=== PATIENT | female | born 1960 | race Caucasian/White ===

== ENCOUNTER → 2021-05-02 | Outpatient (CLI) | payer MEDICAID | END | disposition home or self-care (01) | LOC: ROC 04-18 10:32 | PROVIDERS: ATTEND Radiology Radiation Oncology | DX: C53.9 Malignant neoplasm of cervix uteri, unspecified (principal) | CPT/HCPCS: 99214; G0463 ==

== ENCOUNTER 2021-05-15 08:36 | Observation (INO) | payer MEDICAID ==
[~2021-05-15] VITALS: Ht 162.6 cm; Wt 83.5 kg
[2021-05-16 08:02] VITALS: BP 133/72
== END 2021-05-16 14:54 | disposition home or self-care (01) ==
LOC: 4NW 08:36 → EDSTATUS 09:00 → INTOOBSV 09:00 → OBSVTOIN 09:00 → UNDODISIN 05-16 14:54
PROVIDERS: ADMIT Specialist; ATTEND Specialist
DX: C53.9 Malignant neoplasm of cervix uteri, unspecified (principal); R11.0 Nausea; Z79.899 Other long term (current) drug therapy
CPT/HCPCS: 36415; 74018; 80053; 83735; 85025; 96361; 96365; 96366; 96367; 96375; G0378; G0379; J1100; J1200; J1453; J2150; J2405; J7030; J7050; J9060

== ENCOUNTER 2021-05-18 13:41 | Inpatient (IN) | payer MEDICAID ==
[~2021-05-18] VITALS: Ht 162.6 cm; Wt 83.1 kg
[~2021-05-18 13:41] MED LIST: METH10SO PO
[2021-05-18] MEDS ORDERED: SODIUM CHLORIDE 0.9% 1,000ML IVBOLUS ONE ×2 (14:30→18:00)
--- NOTE | 2021-05-18 15:00 | NUR ---
PT AMUBLATED TO BATHROOM. BACK FROM IMAGING
--- NOTE | 2021-05-18 15:20 | NUR ---
DIFFICULT IV ACCES. ATTEMPTING US
[2021-05-18 15:42] LABS: BASOPHILS % (AUTO) 0 % (0-1); EOSINOPHILS % (AUTO) 0 % (1-7); LYMPHOCYTES % (AUTO) 11 % (22-44); MEAN CORPUSCULAR HEMOGLOBIN 29.4 pg (27.0-34.8); MEAN CORPUSCULAR HGB CONC 33.9 g/dL (32.4-35.8); MONOCYTES % (AUTO) 3 % (2-9); NEUTROPHILS % (AUTO) 86 % (42-75); PLATELET COUNT 232 x10^3/uL (130-400); RED BLOOD COUNT 4.96 x10^6/uL (3.82-5.3); RED CELL DISTRIBUTION WIDTH 12.7 % (9.6-15.2)
[2021-05-18 15:51] LABS: MICROSCOPIC AUTO
[2021-05-18 15:53] LABS: ALANINE AMINOTRANSFERASE 43 U/L (12-78); ALBUMIN 3.5 g/dL (3.4-5.0); ANION GAP 5 mmol/L (5-15); CALCIUM 9.3 mg/dL (8.5-10.1); CHLORIDE 101 mmol/L (98-107)
[2021-05-18 15:56] LABS: ALKALINE PHOSPHATASE 80 U/L (45-117); BILIRUBIN,TOTAL 0.5 mg/dL (0.2-1.0); TOTAL PROTEIN 7.8 g/dL (6.4-8.2)
[2021-05-18] MEDS ORDERED: METHYLNALTREXONE 12 MG/0.6 ML SYR SQ STA (16:09)
[2021-05-18] MEDS ORDERED: METHYLNALTREXONE 12 MG/0.6 ML SYR SQ ONE ×2 (16:30→16:56)
--- NOTE | 2021-05-18 17:39 | NUR ---
pt to bathroom for bm, given toilettes.
[2021-05-18] MEDS ORDERED: MORPHINE SULFATE 4 MG/ML, 1ML IVPush PRN (18:00)
[2021-05-18] MEDS ORDERED: ONDANSETRON 2MG/ML, 2ML IVPush ONE (18:00)
[2021-05-18] MEDS ORDERED: MORPHINE SULFATE 4 MG/ML, 1ML ONE (18:00)
[2021-05-18] MEDS ORDERED: ONDANSETRON 2MG/ML, 2ML ONE (18:00)
--- NOTE | 2021-05-18 18:05 | NUR ---
PT HAVING SEVERE ABDOMINAL CRAMPS. MEDICATED FOR PAIN. PT WANTS TO BE ADMITTED
--- NOTE | 2021-05-18 19:47 | NUR ---
[facility] AT BEDSIDE. REPORT GIVEN
[2021-05-18] MEDS ORDERED: LABETALOL 5MG/ML, 20ML IVPush PRN (20:00)
[2021-05-18] MEDS ORDERED: ACETAMINOPHEN 325 MG TABLET PO PRN (20:00)
[2021-05-18] MEDS ORDERED: OXYC-302 PO (20:24)
[2021-05-18] MEDS ORDERED: DOCU-131 PO (20:24)
[2021-05-18 21:16] VITALS: BP 155/80
[2021-05-18] MEDS: ENOXAPARIN 40 MG/0.4 ML SQ SCH (21:24)
[2021-05-18] MEDS: KETOROLAC 30 MG/1 ML IV PRN (21:24)
[2021-05-18] MEDS: CEFTRIAXONE 2 GM in DEXTROSE 5% 50 ML IVPB SCH (21:24)
[2021-05-18] MEDS: LACTULOSE 10 GM/15 ML UDC PO SCH (21:24)
[2021-05-18] MEDS ORDERED: METH40TA3 PO (22:28)
[2021-05-18] MEDS: ONDANSETRON 2MG/ML, 2ML IVPush PRN (22:36)
[2021-05-18] MEDS: LACTATED RINGERS 1,000 ML IV SCH (22:37)
[2021-05-19 01:07] VITALS: BP 146/72
[2021-05-19] MEDS: ONDANSETRON 2MG/ML, 2ML IVPush PRN ×3 (04:43→19:33)
[2021-05-19] MEDS: KETOROLAC 30 MG/1 ML IV PRN ×3 (04:43→21:10)
[2021-05-19] MEDS: METHADONE 40 MG TABLET.SOL PO SCH ×3 (05:47→08:10)
[2021-05-19 06:28] LABS: BASOPHILS % (AUTO) 1 % (0-1); EOSINOPHILS % (AUTO) 1 % (1-7); LYMPHOCYTES % (AUTO) 34 % (22-44); MEAN CORPUSCULAR HEMOGLOBIN 29.4 pg (27.0-34.8); MEAN CORPUSCULAR HGB CONC 34.1 g/dL (32.4-35.8); MEAN PLATELET VOLUME 9.9 fL (7.4-10.4); MONOCYTES % (AUTO) 4 % (2-9); NEUTROPHILS % (AUTO) 61 % (42-75); PLATELET COUNT 210 x10^3/uL (130-400); RED BLOOD COUNT 4.41 x10^6/uL (3.82-5.3); RED CELL DISTRIBUTION WIDTH 12.7 % (9.6-15.2)
[2021-05-19 06:36] LABS: CHLORIDE 106 mmol/L (98-107)
[2021-05-19 06:59] LABS: ANION GAP 8 mmol/L (5-15); CALCIUM 8.6 mg/dL (8.5-10.1); CREATININE 0.66 mg/dL (0.55-1.02)
[2021-05-19] MEDS ORDERED: METHADONE 10 MG TABLET ONE (08:04)
[2021-05-19] MEDS: LACTULOSE 10 GM/15 ML UDC PO SCH (08:06)
[2021-05-19 09:59] VITALS: BP 149/77
[2021-05-19] MEDS: OXYcodone/APAP 5/325MG TABLET PO PRN ×3 (10:35→19:33)
[2021-05-19] MEDS: LACTATED RINGERS 1,000 ML IV SCH (10:38)
[2021-05-19 15:29] VITALS: BP 141/73
[2021-05-19] MEDS ORDERED: LACTULOSE 10 GM/15 ML UDC PO PRN (17:00)
[2021-05-19 20:19] VITALS: BP 152/78
[2021-05-19] MEDS: MELATONIN 5 MG TABLET PO PRN (21:10)
[2021-05-19] MEDS: CEFTRIAXONE 2 GM in DEXTROSE 5% 50 ML IVPB SCH (21:10)
[2021-05-19] MEDS: ENOXAPARIN 40 MG/0.4 ML SQ SCH (21:10)
[2021-05-20 00:45] VITALS: BP 131/79
[2021-05-20] MEDS: LACTATED RINGERS 1,000 ML IV SCH (01:29)
[2021-05-20] MEDS: ONDANSETRON 2MG/ML, 2ML IVPush PRN ×4 (02:33→16:42)
[2021-05-20] MEDS: OXYcodone/APAP 5/325MG TABLET PO PRN ×5 (02:35→20:50)
[2021-05-20] MEDS: KETOROLAC 30 MG/1 ML IV PRN ×2 (03:09→19:13)
[2021-05-20] MEDS ORDERED: METHADONE 10 MG TABLET ONE (08:02)
[2021-05-20] MEDS: METHADONE 40 MG TABLET.SOL PO SCH (08:04)
[2021-05-20 08:07] VITALS: BP 134/80
[2021-05-20 13:18] VITALS: BP 116/62
[2021-05-20 18:40] VITALS: BP 145/77
[2021-05-20] MEDS: MELATONIN 5 MG TABLET PO PRN (20:50)
[2021-05-20] MEDS: CEFTRIAXONE 2 GM in DEXTROSE 5% 50 ML IVPB SCH (20:50)
[2021-05-20] MEDS: ENOXAPARIN 40 MG/0.4 ML SQ SCH (20:54)
[2021-05-21 01:40] VITALS: BP 132/77
[2021-05-21] MEDS: OXYcodone/APAP 5/325MG TABLET PO PRN ×2 (01:40→19:59)
[2021-05-21] MEDS: KETOROLAC 30 MG/1 ML IV PRN (06:42)
[2021-05-21 07:09] VITALS: BP 140/84
[2021-05-21] MEDS ORDERED: METHADONE 10 MG TABLET ONE (08:50)
[2021-05-21] MEDS: METHADONE 40 MG TABLET.SOL PO SCH (09:09)
[2021-05-21] MEDS: SODIUM CHLORIDE 0.9% 1,000ML IV ONE ×2 (11:20→11:45)
[2021-05-21 12:06] LABS: BASOPHILS % (AUTO) 0 % (0-1); EOSINOPHILS % (AUTO) 1 % (1-7); LYMPHOCYTES % (AUTO) 17 % (22-44); MEAN CORPUSCULAR HGB CONC 34.8 g/dL (32.4-35.8); MEAN PLATELET VOLUME 8.8 fL (7.4-10.4); MONOCYTES % (AUTO) 5 % (2-9); NEUTROPHILS % (AUTO) 77 % (42-75); PLATELET COUNT 205 x10^3/uL (130-400); RED BLOOD COUNT 4.68 x10^6/uL (3.82-5.3)
[2021-05-21 12:16] LABS: ALBUMIN 3.2 g/dL (3.4-5.0); ANION GAP 6 mmol/L (5-15); CALCIUM 9.1 mg/dL (8.5-10.1); CHLORIDE 102 mmol/L (98-107)
[2021-05-21 12:21] LABS: ALANINE AMINOTRANSFERASE 38 U/L (12-78); ALKALINE PHOSPHATASE 67 U/L (45-117); BILIRUBIN,TOTAL 0.5 mg/dL (0.2-1.0); CREATININE 0.91 mg/dL (0.55-1.02); TOTAL PROTEIN 6.7 g/dL (6.4-8.2)
[2021-05-21] MEDS ORDERED: SODIUM CHLORIDE 0.9% 1,000ML IV ONE (13:00)
[2021-05-21] MEDS ORDERED: POTASSIUM CHLORIDE 20 MEQ TAB.ER.PRT PO ONE ×2 (13:00)
[2021-05-21] MEDS ORDERED: FAMOTIDINE 20 MG/2 ML IVPush ONE (14:00)
[2021-05-21] MEDS ORDERED: ONDANSETRON 16 MG, DEXAMETHASONE 12 MG in SODIUM CHLORIDE 0.9% 50 ML IVPB ONE (14:00)
[2021-05-21] MEDS ORDERED: FOSAPREPITANT 150 MG in SODIUM CHLORIDE 0.9% 145 ML IV ONE (14:00)
[2021-05-21] MEDS ORDERED: DIPHENHYDRAMINE 50 MG/ML, 1ML IVPush ONE (14:00)
[2021-05-21 14:16] VITALS: BP 151/81
[2021-05-21] MEDS ORDERED: CISPLATIN IV ONE (14:30)
[2021-05-21] MEDS ORDERED: SODIUM CHLORIDE 0.9% IV ONE (14:30)
[2021-05-21] MEDS ORDERED: LIDOCAINE JELLY 2%, 30GM TP PRN (15:30)
[2021-05-21] MEDS ORDERED: MANNITOL 25% 12.5 GM in SODIUM CHLORIDE 0.9% 1,000 ML IV SCH ×2 (16:00→21:00)
[2021-05-21 19:21] VITALS: BP 151/86
[2021-05-21] MEDS: ENOXAPARIN 40 MG/0.4 ML SQ SCH (19:59)
[2021-05-21] MEDS: ONDANSETRON 2MG/ML, 2ML IVPush PRN (19:59)
[2021-05-21] MEDS ORDERED: FILTER 0.22 MICRON IV ONE (21:00)
[2021-05-21] MEDS: MELATONIN 5 MG TABLET PO PRN (21:43)
[2021-05-21] MEDS: CEFTRIAXONE 2 GM in DEXTROSE 5% 50 ML IVPB SCH (22:19)
[2021-05-22 01:07] VITALS: BP 119/70
[2021-05-22] MEDS: OXYcodone/APAP 5/325MG TABLET PO PRN ×2 (01:18→08:48)
[2021-05-22 06:54] VITALS: BP 141/76
[2021-05-22] MEDS ORDERED: METHADONE 10 MG TABLET ONE (08:28)
[2021-05-22] MEDS: METHADONE 40 MG TABLET.SOL PO SCH (08:33)
[2021-05-22] MEDS: ONDANSETRON 2MG/ML, 2ML IVPush PRN (10:52)
[2021-05-22 13:08] VITALS: BP 149/66
== END 2021-05-22 18:00 | disposition home or self-care (01) | DRG 247 ==
LOC: ED 14:11 → EDIP 17:59 → INTOOBSV 17:59 → OBSVTOIN 17:59 → 4NW 20:17 → UNDODISOB 05-22 18:00
PROVIDERS: ADMIT Internal Medicine; ATTEND Family Medicine
DX: K56.41 Fecal impaction (principal); N30.90 Cystitis, unspecified without hematuria; C53.9 Malignant neoplasm of cervix uteri, unspecified; F11.10 Opioid abuse, uncomplicated; F17.210 Nicotine dependence, cigarettes, uncomplicated; G89.3 Neoplasm related pain (acute) (chronic); Z88.2 Allergy status to sulfonamides
CPT/HCPCS: 36415; 74021; 77336; 77386; 80048; 80053; 81001; 83735; 84443; 85025; 87086; 96361; 96365; 96366; 96367; 96372; 96375; 96376; 99284; G0378; J0696; J1100; J1200; J1453; J1650; J1885; J2150; J2270; J2405; J7030; J7050; J7120; J9060

== ENCOUNTER 2021-05-29 09:00 | Observation (INO) | payer MEDICAID ==
[~2021-05-29] VITALS: Ht 162.6 cm; Wt 85.5 kg
[~2021-05-29 09:00] MED LIST changes: +DOCU-131 PO; +METH40TA3 PO; +OXYC-302 PO
[2021-05-29 15:38] VITALS: BP 122/60
[2021-05-29 15:56] LABS: BASOPHILS % (AUTO) 0 % (0-1); EOSINOPHILS % (AUTO) 2 % (1-7); LYMPHOCYTES % (AUTO) 22 % (22-44); MEAN CORPUSCULAR HEMOGLOBIN 29.5 pg (27.0-34.8); MEAN CORPUSCULAR HGB CONC 33.5 g/dL (32.4-35.8); MEAN PLATELET VOLUME 8.2 fL (7.4-10.4); MONOCYTES % (AUTO) 6 % (2-9); NEUTROPHILS % (AUTO) 70 % (42-75); PLATELET COUNT 152 x10^3/uL (130-400); RED BLOOD COUNT 4.23 x10^6/uL (3.82-5.3); RED CELL DISTRIBUTION WIDTH 12.8 % (9.6-15.2)
[2021-05-29 16:03] LABS: ALANINE AMINOTRANSFERASE 28 U/L (12-78); ALBUMIN 3.2 g/dL (3.4-5.0); ANION GAP 4 mmol/L (5-15); CALCIUM 9.1 mg/dL (8.5-10.1); CHLORIDE 106 mmol/L (98-107); CREATININE 1.12 mg/dL (0.55-1.02)
[2021-05-29 16:05] LABS: ALKALINE PHOSPHATASE 77 U/L (45-117); BILIRUBIN,TOTAL 0.2 mg/dL (0.2-1.0); TOTAL PROTEIN 7.3 g/dL (6.4-8.2)
[2021-05-29] MEDS ORDERED: MAGNESIUM SULFATE/D5W 100 ML IVPB ONE ×2 (16:30→17:00)
[2021-05-29] MEDS ORDERED: SODIUM CHLORIDE 0.9% 1,000ML IVBOLUS SCH (16:30)
[2021-05-29] MEDS ORDERED: DIPHENHYDRAMINE 50 MG/ML, 1ML IVPush ONE (17:30)
[2021-05-29] MEDS ORDERED: FAMOTIDINE 20 MG/2 ML IVPush ONE (17:30)
[2021-05-29] MEDS ORDERED: ONDANSETRON 16 MG, DEXAMETHASONE 12 MG in SODIUM CHLORIDE 0.9% 50 ML IVPB ONE (17:30)
[2021-05-29] MEDS ORDERED: FOSAPREPITANT 150 MG in SODIUM CHLORIDE 0.9% 145 ML IV ONE (17:30)
[2021-05-29] MEDS ORDERED: SODIUM CHLORIDE 0.9% IV ONE (18:00)
[2021-05-29] MEDS ORDERED: CISPLATIN IV ONE (18:00)
[2021-05-29] MEDS ORDERED: SODIUM CHLORIDE 0.9% 1,000ML IVBOLUS ONE (18:00)
[2021-05-29 19:20] VITALS: BP 119/60
[2021-05-29] MEDS ORDERED: MANNITOL 25% 12.5 GM in SODIUM CHLORIDE 0.9% 1,000 ML IV SCH (20:00)
[2021-05-29] MEDS: OXYcodone/APAP 5/325MG TABLET PO PRN (20:37)
[2021-05-30 00:17] VITALS: BP 115/65
[2021-05-30] MEDS: MANNITOL 25% 12.5 GM in SODIUM CHLORIDE 0.9% 1,000 ML IV SCH ×2 (01:05→05:15)
[2021-05-30 03:51] VITALS: BP 138/98
[2021-05-30] MEDS: OXYcodone/APAP 5/325MG TABLET PO PRN (04:48)
[2021-05-30 07:37] VITALS: BP 124/78
[2021-05-30] MEDS ORDERED: METHADONE 10 MG TABLET ONE (07:57)
[2021-05-30] MEDS ORDERED: METHADONE 40 MG TABLET.SOL PO SCH (09:00)
[2021-05-30] MEDS ORDERED: DOCUSATE 100 MG CAPSULE PO SCH (09:00)
== END 2021-05-30 13:20 | disposition home or self-care (01) ==
LOC: INTOOBSV 14:59 → 4NW 14:59
PROVIDERS: ADMIT Specialist; ATTEND Specialist
DX: C53.9 Malignant neoplasm of cervix uteri, unspecified (principal); C53.0 Malignant neoplasm of endocervix; R87.613 High grade squamous intraepithelial lesion on cytologic smear of cervix (HGSIL); F32.9 Major depressive disorder, single episode, unspecified; F17.200 Nicotine dependence, unspecified, uncomplicated; Z51.11 Encounter for antineoplastic chemotherapy; Z79.899 Other long term (current) drug therapy
CPT/HCPCS: 36415; 80053; 83735; 85025; 96365; 96366; 96367; 96375; G0378; J1100; J1200; J1453; J2150; J2405; J7030; J7050; J9060

== ENCOUNTER 2021-06-05 07:33 | Inpatient (IN) | payer MEDICAID ==
[~2021-06-05] VITALS: Ht 162.6 cm; Wt 78.2 kg
[2021-06-05 07:57] VITALS: BP 128/62
[2021-06-05] MEDS ORDERED: SODIUM CHLORIDE 0.9% 1,000 ML IV SCH (08:30)
[2021-06-05] MEDS ORDERED: DOCUSATE 100 MG CAPSULE PO PRN (08:30)
[2021-06-05 08:40] LABS: BASOPHILS % (AUTO) 0 % (0-1); EOSINOPHILS % (AUTO) 3 % (1-7); LYMPHOCYTES % (AUTO) 23 % (22-44); MEAN CORPUSCULAR HEMOGLOBIN 29.9 pg (27.0-34.8); MEAN CORPUSCULAR HGB CONC 34.8 g/dL (32.4-35.8); MEAN PLATELET VOLUME 7.6 fL (7.4-10.4); MONOCYTES % (AUTO) 9 % (2-9); NEUTROPHILS % (AUTO) 65 % (42-75); PLATELET COUNT 137 x10^3/uL (130-400); RED BLOOD COUNT 4.08 x10^6/uL (3.82-5.3); RED CELL DISTRIBUTION WIDTH 12.6 % (9.6-15.2)
[2021-06-05 08:47] LABS: ALANINE AMINOTRANSFERASE 22 U/L (12-78); ALBUMIN 3.2 g/dL (3.4-5.0); ANION GAP 6 mmol/L (5-15); CALCIUM 8.6 mg/dL (8.5-10.1); CHLORIDE 106 mmol/L (98-107); CREATININE 0.97 mg/dL (0.55-1.02)
[2021-06-05 08:50] LABS: ALKALINE PHOSPHATASE 66 U/L (45-117); BILIRUBIN,TOTAL 0.4 mg/dL (0.2-1.0); TOTAL PROTEIN 6.6 g/dL (6.4-8.2)
[2021-06-05] MEDS ORDERED: ACETAMINOPHEN 500 MG TABLET PO PRN (09:00)
[2021-06-05] MEDS ORDERED: ONDANSETRON 16 MG, DEXAMETHASONE 12 MG in SODIUM CHLORIDE 0.9% 50 ML IVPB ONE (10:00)
[2021-06-05] MEDS ORDERED: FAMOTIDINE 20 MG/2 ML IVPush ONE (10:00)
[2021-06-05] MEDS ORDERED: DIPHENHYDRAMINE 50 MG/ML, 1ML IVPush PRN (10:00)
[2021-06-05] MEDS: METHADONE 40 MG TABLET.SOL PO SCH (10:25)
[2021-06-05] MEDS: ONDANSETRON 2MG/ML, 2ML IVPush PRN ×2 (10:25→22:52)
[2021-06-05] MEDS ORDERED: FILTER 0.22 MICRON FOR MANNITOL IV PRN (10:30)
[2021-06-05] MEDS ORDERED: FOSAPREPITANT 150 MG in SODIUM CHLORIDE 0.9% 145 ML IV ONE (10:30)
[2021-06-05] MEDS ORDERED: DIPHENOXYLATE/ATROPINE TABLET PO PRN (10:30)
[2021-06-05] MEDS ORDERED: POTASSIUM CHLORIDE IV ONE (11:00)
[2021-06-05] MEDS ORDERED: MAGNESIUM SULFATE IV ONE (11:00)
[2021-06-05] MEDS ORDERED: CISPLATIN IV ONE (11:00)
[2021-06-05] MEDS ORDERED: [UNRECOGNIZED DRUG - OTHER] IV ONE (11:00)
[2021-06-05] MEDS: OXYcodone/APAP 5/325MG TABLET PO PRN ×2 (12:11→19:45)
[2021-06-05 12:37] VITALS: BP 139/81
[2021-06-05] MEDS: MANNITOL 25% 12.5 GM in SODIUM CHLORIDE 0.9% 1,000 ML IVPush SCH ×2 (14:00→17:43)
[2021-06-05 18:37] VITALS: BP 156/67
[2021-06-06 01:26] VITALS: BP 137/70
[2021-06-06] MEDS: OXYcodone/APAP 5/325MG TABLET PO PRN ×2 (02:50→12:21)
[2021-06-06 06:59] VITALS: BP 139/76
[2021-06-06] MEDS: METHADONE 40 MG TABLET.SOL PO SCH (07:32)
[2021-06-06] MEDS ORDERED: CHLORHEXIDINE 15 ML UDC PO ONE (08:30)
[2021-06-06] MEDS ORDERED: PROPOFOL 10 MG/ML, 20ML ONE (08:55)
[2021-06-06] MEDS ORDERED: ONDANSETRON 2MG/ML, 2ML ONE (08:55)
[2021-06-06] MEDS ORDERED: DEXAMETHASONE 4 MG/ML, 1ML ONE (08:55)
[2021-06-06] MEDS ORDERED: METHADONE 10 MG TABLET PO SCH (09:00)
[2021-06-06] MEDS ORDERED: ACETAMINOPHEN 325 MG TABLET PO PRN (09:30)
[2021-06-06] MEDS ORDERED: morphine SULFATE 10 MG/ML, 1ML IVPush PRN (09:30)
[2021-06-06] MEDS ORDERED: FENTANYL PF 100 MCG/2ML IV PRN (09:30)
[2021-06-06] MEDS ORDERED: HYDROcodone/APAP 7.5-325MG/15ML UDC PO PRN (09:30)
[2021-06-06] MEDS ORDERED: PROMETHAZINE 25 MG/ML, 1ML IVPush PRN (09:30)
[2021-06-06 11:09] LABS: AMPHETAMINE SCREEN, URINE Negative (Negative); BARBITURATE SCREEN, URINE Negative (Negative); BENZODIAZEPINE SCREEN, URINE Negative (Negative); CANNABINOID SCREEN, URINE Negative (Negative); COCAINE SCREEN, URINE Negative (Negative); METHADONE SCREEN, URINE Positive (Negative); OPIATE SCREEN, URINE Negative (Negative)
[2021-06-06] MEDS: ONDANSETRON 2MG/ML, 2ML IVPush PRN (14:25)
== END 2021-06-06 15:06 | disposition home or self-care (01) | DRG 756 ==
LOC: 4NW 07:52
PROVIDERS: ADMIT Specialist; ATTEND Specialist
DX: C53.9 Malignant neoplasm of cervix uteri, unspecified (principal); K59.00 Constipation, unspecified; M85.80 Other specified disorders of bone density and structure, unspecified site; N89.8 Other specified noninflammatory disorders of vagina; F32.9 Major depressive disorder, single episode, unspecified; B19.20 Unspecified viral hepatitis C without hepatic coma; Z98.51 Tubal ligation status; Z79.899 Other long term (current) drug therapy
CPT/HCPCS: 36415; 80053; 80307; 83735; 85025; 87635; 93005; G0378; J1100; J1453; J2405; J2704; J3475; J3480; J9060; J1200; J2150; J7030; J7040

== ENCOUNTER 2021-06-12 09:00 | Observation (INO) | payer MEDICAID ==
[~2021-06-12] VITALS: Ht 160 cm; Wt 90.9 kg
[2021-06-13 07:27] VITALS: BP 124/78
== END 2021-06-13 11:17 | disposition home or self-care (01) ==
LOC: 4NW 11:47 → INTOOBSV 11:47
PROVIDERS: ADMIT Specialist; ATTEND Specialist
DX: C53.9 Malignant neoplasm of cervix uteri, unspecified (principal); M85.80 Other specified disorders of bone density and structure, unspecified site; N89.8 Other specified noninflammatory disorders of vagina; Z79.899 Other long term (current) drug therapy; Z98.51 Tubal ligation status
CPT/HCPCS: 36415; 80053; 83735; 85025; 96365; 96366; 96367; 96375; G0378; G0379; J1100; J1200; J1453; J2150; J2405; J3475; J3480; J7030; J7040; J9060

== ENCOUNTER → 2021-06-16 | Outpatient (CLI) | payer MEDICAID | END | disposition home or self-care (01) | LOC: CFH 08:00 | PROVIDERS: ATTEND Family Medicine | DX: C53.0 Malignant neoplasm of endocervix (principal); D25.1 Intramural leiomyoma of uterus | CPT/HCPCS: 72197; A9575 ==